=== PATIENT | female | born 1960 | race Caucasian/White ===

== ENCOUNTER → 2020-08-19 15:19 | Outpatient (BNVA) | payer MEDICARE, OTHER, SELFPAY | PROVIDERS: PCP Internal Medicine; Visit Provider Hospitalist | DX: J45.40 Moderate persistent asthma, uncomplicated (principal); G47.33 Obstructive sleep apnea (adult) (pediatric) | CPT/HCPCS: 99212 ==

== ENCOUNTER → 2020-10-10 19:22 | Outpatient (REF) | payer MEDICARE, OTHER, SELFPAY | LOC: HO.SL 19:22 | PROVIDERS: PCP Internal Medicine; Visit Provider Hospitalist | DX: G47.33 Obstructive sleep apnea (adult) (pediatric) (principal) | CPT/HCPCS: 95811 ==

== ENCOUNTER → 2020-11-16 09:05 | Outpatient (BNVA) | payer MEDICARE, OTHER, SELFPAY | PROVIDERS: PCP Internal Medicine; Visit Provider Hospitalist | DX: J45.40 Moderate persistent asthma, uncomplicated (principal); G47.33 Obstructive sleep apnea (adult) (pediatric) | CPT/HCPCS: 99212 ==

== ENCOUNTER → 2021-08-15 08:56 | Outpatient (BNVA) | payer MEDICARE, OTHER, SELFPAY | PROVIDERS: PCP Internal Medicine; Visit Provider Hospitalist | DX: J45.40 Moderate persistent asthma, uncomplicated (principal); G47.33 Obstructive sleep apnea (adult) (pediatric) | CPT/HCPCS: 99212 ==

== ENCOUNTER → 2022-02-06 08:51 | Outpatient (BNVA) | payer MEDICARE, OTHER, SELFPAY | PROVIDERS: PCP Internal Medicine; Visit Provider Hospitalist | DX: G47.33 Obstructive sleep apnea (adult) (pediatric) (principal); J45.40 Moderate persistent asthma, uncomplicated | CPT/HCPCS: 99212 ==

== ENCOUNTER 2023-05-22 08:37 | Outpatient (AMB) | payer MEDICARE, OTHER, SELFPAY ==
--- NOTE | 2023-05-22 08:50 | A.OFFVIS_ITS ---
Intake Vital Signs 05/22/23 08:51 Height 5 ft 2 in Weight 193 lb BMI 35.3 Pulse 74 Pulse Source Pulse Oximeter Pulse Oximetry (%) 93 Oxygen Delivery Method Room Air Intake Visit Reasons: Obstructive sleep apnea [employer] Required: No Allergies dulaglutide [From Trulicity] Allergy (Severe, Verified 05/22/23 08:52) Rash levofloxacin [Levaquin] Allergy (Severe, Verified 05/22/23 08:52) Hives lisinopril Allergy (Severe, Verified 05/22/23 08:52) Cough varenicline Allergy (Severe, Verified 05/22/23 08:52) suicidal thoughts Albuterol Allergy (Severe, Uncoded 05/22/23 08:52) tachycardia Erythromycin Allergy (Severe, Uncoded 05/22/23 08:52) diarrhea HPI HPI Comments History of Present Illness Details The patient is a 62-year-old woman known history of heart disease in addition to asthma and obstructive sleep apnea. Her obstructive sleep apnea has been treated with CPAP. CPAP therapy has been affecting beneficial. Lately she has been having difficulties with her nasal pillow mask. Therefore this is making it hard for her to use it the whole night. Therefore I will provide her with a P 30i small mask that she can try and hopefully she tolerates a little better. Her asthma has been well control with the current asthma therapy. She has not had any flares or need for her nebulizer which is reassuring. She still has a rescue inhaler that she uses less than 2 times a week. She continues her maintenance therapy as prescribed. She has been having issues with weight gain, more than 10 lb in the last few weeks. She does follow up closely with [facility] because of heart failure. Her Bumex has been decreased from 8 mg to now to 3 mg. She is going to monitor her weight over the weekend if she continues gaining weight and worsening edema she needs to call [facility] to have this further addressed. 02/06/2022 the patient is here for miriam monreal follow-up visit. She is having some difficulties with her CPAP. CPAP is no longer working and therefore she cannot use it. She is complaining of increasing daytime drowsiness. Her [place] score is elevated 03/18. The patient is due for replacement machine. I will request a replacement machine at this time from her [employer] company. In regards the asthma she does continue to use the Advair. Denies having to use her rescue inhaler. Denies any exacerbations at this point. Overall the patient is doing well from a respiratory status. Will continue the current therapy at this time. On examination I did appreciate some crackles at the base of her left lung. Will have her get a chest x-ray. She is currently asymptomatic so therefore she cannot 1 done prior to the next appointment. 05/22/2023 the patient is here for a pulm onary follow-up visit. The patient has been struggling with her CPAP. She does have a CPAP machine through [facility]. Has a hard time with the mask because so cumbersome when she goes to the [facility] is difficult to put on and off. 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 Therefore she has been struggling with her CPAP. She is consider alternatives such as the hypoglossal nerve stimulator. We did talk about the concerns of the surgical implantation of the hypoglossal nerve stimulator. And also the fact that is not as effective as the gold standard which CPAP. I do believe that her BMI is a little too high for the procedure in the 1st place. Therefore my recommendation is to try to find a mask that would work best for her for her to tolerate the therapy and to be able to exhaust any other alternative options. In the meantime we can consider the inspire or any other devices that come afterwards as far as reasonable options if she does not tolerate the gold standard. The patient does diabetes and therefore any kind of surgical procedure does have increased risk of infection and I would advise her just to hold off at this time. From a respiratory status the patient is doing well though she is using Advair now is not available. Therefore will have to switch over to 90 [address]. The patient will continue to use her respiratory therapy. She has not required her rescue inhaler. [facility] [place] Medical History (Updated 08/19/20 @ 23:04 by Bravo Walker MD) Asthma YAJAIRA (obstructive sleep apnea) Social History (Updated 11/16/20 @ 09:24 by DAYDAY Jiang) Patient Tobacco Use Status: Former Tobacco user Tobacco use type: Cigarette Years Smoked: 30 years Review of Systems Const Reports daytime sleepiness, Denies night sweats and Denies snoring ENT Denies change in voice, Denies lip swelling, Denies mouth pain, Reports nasal congestion, Reports nasal discharge and Denies tongue swelling Card Denies chest pain and Reports dyspnea on exertion Resp Reports cough, Reports dyspnea on exertion, Denies snoring and Reports wheezing GI Denies abdominal pain Musc Denies no additional complaints Neuro Denies Neuro-related abnormal movements Psych Denies no additional complaints Jason/Lymph Denies easy bleeding and Denies lymphadenopathy Aller/Immun Denies lip swelling, Denies tongue swelling and Reports wheezing Physical Exam Vital Signs: Last Vital Signs Pulse 74 05/22/23 08:51 Pulse Ox 93 05/22/23 08:51 Oxygen Delivery Method Room Air 05/22/23 08:51 BMI result Body Mass Index 35.3 Const General: alert Neck Neck: Yes normal visual inspection, Yes full ROM and Yes no lymphadenopathy Chest Chest palpation & inspection: normal inspection of the chest Resp Auscultation: rales and diminished lung sounds Cardio Rate: regular rate Rhythm: regular rhythm Heart sounds: S1 normal heart sound present and S2 normal heart sound present GI Palpation (GI): Soft to palpation and nontender Auscultation: normal bowel sounds Skin General skin exam: rashes and/or lesions noted Assessment & Plan Assessment & Plan (1) Asthma: Code(s): J45.909 - Unspecified asthma, uncomplicated Qualifiers: Asthma complication type: uncomplicated Asthma persistence: persistent Asthma severity: moderate Qualified Code(s): J45.40 - Moderate persistent asthma, uncomplicated (2) YAJAIRA (obstructive sleep apnea): Code(s): G47.33 - Obstructive sleep apnea (adult) (pediatric) Plan continue APAP 8-12 with a ramp of 6. Requesting F30 small, will have a mask fitting appt with her DME. Holding off on hypoglossal nerve stimulator. I did call the DME, may need a get a repeat PSG, will lwt us know. Continue Advair HFA Continue Singulair JAYDEN as needed F/U 8-12 months Medications: New albuterol sulfate 90 mcg/actuation 2 inhalations inhalation Q6H PRN 18 grams 12RF shortness of breath or wheezing 30 days J44.9 - Chronic obstructive pulmonary disease, unspecified Changed From fluticasone propion-salmeterol 230-21 mcg/actuation 2 puffs inhalation BID To fluticasone propion-salmeterol 230-21 mcg/actuation 2 puffs inhalation BID 12 grams 11RF 30 days Refilled montelukast 10 mg PO DAILY 90 tabs 4RF Coding Level of Care Code Est Pt Level 4 (98607) Diagnoses Moderate persistent asthma without complication J45.40 Asthma complication type: uncomplicated Asthma persistence: persistent Asthma severity: moderate YAJAIRA (obstructive sleep apnea) G47.33 Time Spent (min) 17
[2023-05-22 08:51] VITALS: PULSE 74; O2SAT 93; BMI 35.3
== END 2023-05-22 09:23 | disposition home or self-care (01) ==
PROVIDERS: PCP Internal Medicine; Visit Provider Hospitalist
DX: J45.40 Moderate persistent asthma, uncomplicated (principal); G47.33 Obstructive sleep apnea (adult) (pediatric)
CPT/HCPCS: 99214

== ENCOUNTER → 2023-05-22 08:37 | Outpatient (BNVA) | payer MEDICARE, OTHER, SELFPAY | PROVIDERS: PCP Internal Medicine; Visit Provider Hospitalist | DX: G47.33 Obstructive sleep apnea (adult) (pediatric) (principal); J45.40 Moderate persistent asthma, uncomplicated | CPT/HCPCS: 99212 ==

== ENCOUNTER 2023-11-28 08:49 | Outpatient (AMB) | payer MEDICARE, OTHER, SELFPAY ==
[2023-11-28 08:56] VITALS: BP 124/68; PULSE 50; O2SAT 95; BMI 35.1
--- NOTE | 2023-11-28 08:56 | MHC.OFFVIS ---
Vital Signs 11/28/23 08:56 Height 5 ft 2 in Weight 191 lb 12.835 oz BMI 35.1 BP 124/68 Blood Pressure Location Rt brachial Position Sitting Pulse 50 Pulse Source Pulse Oximeter Pulse Oximetry (%) 95 Oxygen Delivery Method Room Air Intake Visit Reasons: Obstructive sleep apnea Allergies dulaglutide [From Trulicity] Allergy (Severe, Verified 11/28/23 08:59) Rash levofloxacin [Levaquin] Allergy (Severe, Verified 11/28/23 08:59) Hives lisinopril Allergy (Severe, Verified 11/28/23 08:59) Cough varenicline Allergy (Severe, Verified 11/28/23 08:59) suicidal thoughts Albuterol Allergy (Severe, Uncoded 11/28/23 08:59) tachycardia Erythromycin Allergy (Severe, Uncoded 11/28/23 08:59) diarrhea HPI Comments Details: The patient is a 63-year-old woman known history of heart disease in addition to asthma and obstructive sleep apnea. Her obstructive sleep apnea has been treated with CPAP. CPAP therapy has been affecting beneficial. Lately she has been having difficulties with her nasal pillow mask. Therefore this is making it hard for her to use it the whole night. Therefore I will provide her with a P 30i small mask that she can try and hopefully she tolerates a little better. Her asthma has been well control with the current asthma therapy. She has not had any flares or need for her nebulizer which is reassuring. She still has a rescue inhaler that she uses less than 2 times a week. She continues her maintenance therapy as prescribed. She has been having issues with weight gain, more than 10 lb in the last few weeks. She does follow up closely with [facility] because of heart failure. Her Bumex has been decreased from 8 mg to now to 3 mg. She is going to monitor her weight over the weekend if she continues gaining weight and worsening edema she needs to call [facility] to have this further addressed. 02/06/2022 the patient is here for pulmonary follow-up visit. She is having some difficulties with her CPAP. CPAP is no longer working and therefore she cannot use it. She is complaining of increasing daytime drowsiness. Her [place] score is elevated 03/18. The patient is due for replacement machine. I will request a replacement machine at this time from her [employer]. In regards the asthma she does continue to use the Advair. Denies having to use her rescue inhaler. Denies any exacerbations at this point. Overall the patient is doing well from a respiratory status. Will continue the current therapy at this time. On examination I did appreciate some crackles at the base of her left lung. Will have her get a chest x-ray. She is currently asymptomatic so therefore she cannot 1 done prior to the next appointment. 05/22/2023 the patient is here for a pulmonary follow-up visit. The patient has been struggling with her CPAP. She does have a CPAP machine through regional. Has a hard time with the mask because so cumbersome when she goes to the bathroom is difficult to put on and off. 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 Therefore she has been struggling with her CPAP. She is consider alternatives such as the hypoglossal nerve stimulator. We did talk about the concerns of the surgical implantation of the hypoglossal nerve stimulator. And also the fact that is not as effective as the gold standard which CPAP. I do believe that her BMI is a little too high for the procedure in the 1st place. Therefore my recommendation is to try to find a mask that would work best for her for her to tolerate the therapy and to be able to exhaust any other alternative options. In the meantime we can consider the inspire or any other devices that come afterwards as far as reasonable options if she does not tolerate the gold standard. The patient does diabetes and therefore any kind of surgical procedure does have increased risk of infection and I would advise her just to hold off at this time. From a respiratory status the patient is doing well though she is using Advair now is not available. Therefore will have to switch over to 90 [address]ixela. The patient will continue to use her respiratory therapy. She has not required her rescue inhaler. 11/28/2023 the patient is here for a pulmonary follow-up visit. The patient overall has been doing okay. She does have significant lower extremity pain and swelling and has vascular disease. She is currently moving from home to an apartment this has been a lot of aggravation for her. In the meantime she continues to struggle to use her CPAP. She recently lost her dog and now has a hard time sleeping. The patient does use a fullface mask. The CPAP although she has not been using it regularly has been affecting beneficial for her. Will give her sleep aid to see if she can sleep better in order to use her CPAP more recently in effectively. Will request supplies from [facility] [employer]. Her asthma seems to be stable this time. She is using her respiratory inhalers as prescribed. Back in the spring she was admitted to [facility] with sepsis. The patient states that she was found to have pneumonia. She was treated and released. Subsequently after that she did have her pneumonia vaccine. She is going to make sure she had Prevnar 20. She also had an x-ray that per report the patient states that the changes improved. All available [place]. Will have to request records. But for now since she did have a normal x-ray will hold off on additional imaging studies. Her respiratory exam is reassuring. We will follow-up in the spring will decide if we need additional imaging studies done [facility] Medical History (Updated 08/19/20 @ 23:04 by Bravo Walker MD) Asthma YAJAIRA (obstructive sleep apnea) Social History (Updated 11/16/20 @ 09:24 by DAYDAY Jiang) Patient Tobacco Use Status: Former Tobacco user Tobacco use type: Cigarette Years Smoked: 30 years Review of Systems Const Reports daytime sleepiness, Denies night sweats and Denies snoring ENT Denies change in voice, Denies lip swelling, Denies mouth pain, Reports nasal congestion, Reports nasal discharge and Denies tongue swelling Card Denies chest pain and Reports dyspnea on exertion Resp Reports cough, Reports dyspnea on exertion, Denies snoring and Reports wheezing GI Denies abdominal pain Musc Denies no additional complaints Neuro Denies Neuro-related abnormal movements Psych Denies no additional complaints Jason/Lymph Denies easy bleeding and Denies lymphadenopathy Aller/Immun Denies lip swelling, Denies tongue swelling and Reports wheezing Physical Exam Vital Signs: Last Vital Signs Pulse 50 11/28/23 08:56 BP 124/68 11/28/23 08:56 Pulse Ox 95 11/28/23 08:56 Oxygen Delivery Method Room Air 11/28/23 08:56 BMI result Body Mass Index 35.1 Const General: alert Neck Neck: Yes normal visual inspection, Yes full ROM and Yes no lymphadenopathy Chest Chest palpation & inspection: normal inspection of the chest Resp Auscultation: diminished lung sounds Cardio Rate: regular rate Rhythm: regular rhythm Heart sounds: S1 normal heart sound present and S2 normal heart sound present GI Palpation (GI): Soft to palpation and nontender Auscultation: normal bowel sounds Skin General skin exam: rashes and/or lesions noted Assessment & Plan Assessment & Plan (1) Asthma: Code(s): J45.909 - Unspecified asthma, uncomplicated Category: Medical Qualifiers: Asthma complication type: uncomplicated Asthma persistence: persistent Asthma severity: moderate Qualified Code(s): J45.40 - Moderate persistent asthma, uncomplicated (2) YAJAIRA (obstructive sleep apnea): Code(s): G47.33 - Obstructive sleep apnea (adult) (pediatric) Category: Medical Plan continue APAP 8-12 with a ramp of 6. F30 small, will have a mask fitting appt with her DME. Continue Advair HFA Continue Singulair JAYDEN as needed trial of Trazodone as needed for sleep F/U 8-12 months Medications: New trazodone Take 1 hour before sleep 50 mg PO BEDTIME PRN 30 tabs 6RF sleep 30 days fluticasone propionate 50 mcg/actuation 2 sprays intranasal DAILY 16 grams 11RF Refilled fluticasone propion-salmeterol 230-21 mcg/actuation 2 puffs inhalation BID 12 grams 11RF 30 days montelukast 10 mg PO DAILY 90 tabs 4RF Coding Level of Care Code Est Pt Level 4 (37297) Diagnoses Moderate persistent asthma without complication J45.40 Asthma complication type: uncomplicated Asthma persistence: persistent Asthma severity: moderate YAJAIRA (obstructive sleep apnea) G47.33 Time Spent (min) 16
== END 2023-11-28 09:16 | disposition home or self-care (01) ==
PROVIDERS: PCP Internal Medicine; Visit Provider Hospitalist
DX: J45.40 Moderate persistent asthma, uncomplicated (principal); G47.33 Obstructive sleep apnea (adult) (pediatric)
CPT/HCPCS: 99214

== ENCOUNTER → 2023-11-28 08:49 | Outpatient (BNVA) | payer MEDICARE, OTHER, SELFPAY | PROVIDERS: PCP Internal Medicine; Visit Provider Hospitalist | DX: J45.40 Moderate persistent asthma, uncomplicated (principal); G47.33 Obstructive sleep apnea (adult) (pediatric) | CPT/HCPCS: 99212 ==

== ENCOUNTER 2024-09-01 08:35 | Outpatient (AMB) | payer MEDICARE, OTHER, SELFPAY ==
[2024-09-01 08:38] VITALS: BP 120/60; PULSE 69; O2SAT 97; BMI 35.1
--- NOTE | 2024-09-01 08:38 | MHC.OFFVIS ---
Vital Signs 09/01/24 08:38 Height 5 ft 2 in Weight 191 lb 12.835 oz BMI 35.1 BP 120/60 Blood Pressure Location Rt brachial Position Sitting Pulse 69 Pulse Source Pulse Oximeter Pulse Oximetry (%) 97 Oxygen Delivery Method Room Air Intake Visit Reasons: Obstructive sleep apnea Leave Manager Required: No Allergies dulaglutide [From Trulicity] Allergy (Severe, Verified 09/01/24 08:41) Rash levofloxacin [Levaquin] Allergy (Severe, Verified 09/01/24 08:41) Hives lisinopril Allergy (Severe, Verified 09/01/24 08:41) Cough varenicline Allergy (Severe, Verified 09/01/24 08:41) suicidal thoughts Albuterol Allergy (Severe, Uncoded 11/28/23 08:59) tachycardia Erythromycin Allergy (Severe, Uncoded 11/28/23 08:59) diarrhea HPI Comments Details: The patient is a 64-year-old woman known history of heart disease in addition to asthma and obstructive sleep apnea. Her obstructive sleep apnea has been treated with CPAP. CPAP therapy has been affecting beneficial. Lately she has been having difficulties with her nasal pillow mask. Therefore this is making it hard for her to use it the whole night. Therefore I will provide her with a P 30i small mask that she can try and hopefully she tolerates a little better. Her asthma has been well control with the current asthma therapy. She has not had any flares or need for her nebulizer which is reassuring. She still has a rescue inhaler that she uses less than 2 times a week. She continues her maintenance therapy as prescribed. She has been having issues with weight gain, more than 10 lb in the last few weeks. She does follow up closely with [facility] because of heart failure. Her Bumex has been decreased from 8 mg to now to 3 mg. She is going to monitor her weight over the weekend if she continues gaining weight and worsening edema she needs to call [facility] to have this further addressed. 02/06/2022 the patient is here for pulmonary follow-up visit. She is having some difficulties with her CPAP. CPAP is no longer working and therefore she cannot use it. She is complaining of increasing daytime drowsiness. Her [place] score is elevated 03/18. The patient is due for replacement machine. I will request a replacement machine at this time from her [employer]. In regards the asthma she does continue to use the Advair. Denies having to use her rescue inhaler. Denies any exacerbations at this point. Overall the patient is doing well from a respiratory status. Will continue the current therapy at this time. On examination I did appreciate some crackles at the base of her left lung. Will have her get a chest x-ray. She is currently asymptomatic so therefore she cannot 1 done prior to the next appointment. 05/22/2023 the patient is here for a pulmonary follow-up visit. The patient has been struggling with her CPAP. She does have a CPAP machine through regional. Has a hard time with the mask because so cumbersome when she goes to the bathroom is difficult to put on and off. 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 Therefore she has been struggling with her CPAP. She is consider alternatives such as the hypoglossal nerve stimulator. We did talk about the concerns of the surgical implantation of the hypoglossal nerve stimulator. And also the fact that is not as effective as the gold standard which CPAP. I do believe that her BMI is a little too high for the procedure in the 1st place. Therefore my recommendation is to try to find a mask that would work best for her for her to tolerate the therapy and to be able to exhaust any other alternative options. In the meantime we can consider the inspire or any other devices that come afterwards as far as reasonable options if she does not tolerate the gold standard. The patient does diabetes and therefore any kind of surgical procedure does have increased risk of infection and I would advise her just to hold off at this time. From a respiratory status the patient is doing well though she is using Advair now is not available. Therefore will have to switch over to 90 [place]. The patient will continue to use her respiratory therapy. She has not required her rescue inhaler. 11/28/2023 the patient is here for a pulmonary follow-up visit. The patient overall has been doing okay. She does have significant lower extremity pain and swelling and has vascular disease. She is currently moving from home to an apartment this has been a lot of aggravation for her. In the meantime she continues to struggle to use her CPAP. She recently lost her dog and now has a hard time sleeping. The patient does use a fullface mask. The CPAP although she has not been using it regularly has been affecting beneficial for her. Will give her sleep aid to see if she can sleep better in order to use her CPAP more recently in effectively. Will request supplies from [employer]. Her asthma seems to be stable this time. She is using her respiratory inhalers as prescribed. Back in the spring she was admitted to [facility] with sepsis. The patient states that she was found to have pneumonia. She was treated and released. Subsequently after that she did have her pneumonia vaccine. She is going to make sure she had Prevnar 20. She also had an x-ray that per report the patient states that the changes improved. All available Coffee. Will have to request records. But for now since she did have a normal x-ray will hold off on additional imaging studies. Her respiratory exam is reassuring. We will follow-up in the spring will decide if we need additional imaging studies done 09/01/2024 the patient is here for pulmonary follow-up visit. The patient did have issues with chest pain and shortness of breath back in February and March. She underwent cardiac testing in March and was found to have significant heart disease. She was admitted to [facility] where she underwent cardiac bypass surgery. She was then diagnosed with pneumonia and she was treated. Patient also started developing chest pain afterwards and she had a repeat cardiac catheterization and actually required another stent. Now she is feeling a lot better. Breathing is a lot better. She does have inhalers. The patient is doing okay from the asthma standpoint. Does not require her rescue inhaler less than 2 times a week. The patient also was seen by sleep. She was placed on nasal pillows. Her CPAP company is reliable. She is using it in the therapy has been affecting beneficial. Will request a download from her [employer] company at this time. [facility], [facility] Medical History (Updated 08/19/20 @ 23:04 by Bravo Walker MD) Asthma YAJAIRA (obstructive sleep apnea) Surgical History (Updated 09/01/24 @ 09:43 by Bravo Walker MD) History of open heart surgery Social History Patient Tobacco Use Status: Former Tobacco user Tobacco use type: Cigarette Years Smoked: 30 years Review of Systems Const Denies chills, Denies fatigue, Denies fever(s), Denies weight gain and Denies weight loss ENT Denies dizziness, Denies lip swelling and Denies tongue swelling Card Denies chest pain, Denies leg edema, Denies lightheadedness, Denies palpitations, Denies dyspnea on exertion, Denies orthopnea and Denies other Resp Denies cough, Denies dyspnea on exertion and Denies wheezing GI Denies hematochezia and Denies change in stool character Musc Denies abnormal gait, Denies muscle weakness, Denies numbness, Denies radiating pain into limb and Denies tingling Neuro Denies abnormal gait, Denies dizziness, Denies numbness and Denies tingling Psych Denies no additional complaints Endo Denies fatigue and Denies palpitations Jason/Lymph Denies easy bleeding and Denies lymphadenopathy Aller/Immun Denies lip swelling, Denies tongue swelling and Denies wheezing Physical Exam Vital Signs: Last Vital Signs Pulse 69 09/01/24 08:38 BP 120/60 09/01/24 08:38 Pulse Ox 97 09/01/24 08:38 Oxygen Delivery Method Room Air 09/01/24 08:38 BMI result Body Mass Index 35.1 Const General: alert Neck Neck: Yes normal visual inspection, Yes full ROM and Yes no lymphadenopathy Chest Chest palpation & inspection: normal inspection of the chest and other (new scar from open hear surgery) Resp Effort & Inspection: normal respiratory effort Auscultation: clear to auscultation bilaterally Cardio Rate: regular rate Rhythm: regular rhythm Heart sounds: S1 normal heart sound present and S2 normal heart sound present GI Palpation (GI): Soft to palpation and nontender Auscultation: normal bowel sounds Skin General skin exam: rashes and/or lesions noted Assessment & Plan Assessment & Plan (1) Asthma: Code(s): J45.909 - Unspecified asthma, uncomplicated Category: Medical Qualifiers: Asthma complication type: uncomplicated Asthma persistence: persistent Asthma severity: moderate Qualified Code(s): J45.40 - Moderate persistent asthma, uncomplicated (2) YAJAIRA (obstructive sleep apnea): Code(s): G47.33 - Obstructive sleep apnea (adult) (pediatric) Category: Medical (3) History of open heart surgery: Code(s): Z98.890 - Other specified postprocedural states Category: Medical Plan continue APAP 8-12 with a ramp of 6. Nasal pillows, [facility] CXR baseline after having pneumonia Continue Advair HFA Continue Singulair JAYDEN as needed Melatonin for sleep F/U 8-12 months Orders: Orders XR chest 2V Today J45.40 - Moderate persistent asthma, uncomplicated Medications: Refilled albuterol sulfate 90 mcg/actuation 2 inhalations inhalation Q6H PRN 18 grams 12RF shortness of breath or wheezing 30 days J44.9 - Chronic obstructive pulmonary disease, unspecified fluticasone propion-salmeterol 230-21 mcg/actuation 2 puffs inhalation BID 12 grams 11RF 30 days montelukast 10 mg PO DAILY 90 tabs 4RF Coding Level of Care Code Est Pt Level 4 (41949) Diagnoses Moderate persistent asthma without complication J45.40 Asthma complication type: uncomplicated Asthma persistence: persistent Asthma severity: moderate YAJAIRA (obstructive sleep apnea) G47.33 History of open heart surgery Z98.890 Time Spent (min) 17
--- OUTSIDE RECORDS SUMMARY | 2024-09-01 08:44 | XMS_ITS | Encounter Summary ---
Author Organization [facility] Address [address] [place] [address] Care Team Providers Care Hop Weigher Name Role Phone Suraj Murguia MD Primary Care Provider Rosaura Bhagat MD Unavailable [phone] Chantal Crane PA-C Unavailable [phone] Sukumar Ramirez PA-C Unavailable Encounter Details Date Type Department Care Team Description 10/10/2018 Release of Information Medical Records [address] [place] [id number] Abstract, Provider Social History Tobacco Use Types Packs/Day Years Used Date Smoking Tobacco: Former Cigarettes 1 30 1 977 - 07/20/2010 Smokeless Tobacco: Never Alcohol Use Standard Drinks/Week Comments No 0 (1 standard drink = 0.6 oz pur e alcohol) Sex Assigned at Date Recorded Not on file Job Start Date Occupation Industry Not on file Not on file Not on file documented as of this encounter Plan of Treatment Not on file documented as of this encounter Visit Diagnoses Not on filedocumented in this encounter Care Teams Hop Weigher Relationship Specialty Start Date End Date Suraj Murguia MD PCP - General 12/16/04 Rosaura Paiz MD [address] [address] Specialist Neurosurgery 10/04/21 Chantal Crane PA-C [address] [address] Specialist Neurosurgery 11/08/21 Sukumar Ramirez PA-C [address] [facility] [address] [place] [address] Specialist Neurosurgery 11/08/21 documented as of this encounter
== END 2024-09-01 09:56 | disposition home or self-care (01) ==
LOC: HO.HPS 08:35
PROVIDERS: PCP Internal Medicine; Visit Provider Hospitalist
DX: J45.40 Moderate persistent asthma, uncomplicated (principal); G47.33 Obstructive sleep apnea (adult) (pediatric); Z98.890 Other specified postprocedural states
CPT/HCPCS: 99214

== ENCOUNTER 2024-09-01 08:35 | Outpatient (REF) | payer MEDICARE, OTHER, SELFPAY ==
--- NOTE | ~2024-09-01 | XR_ITS ---
EXAMINATION: XR CHEST 2 VIEWS HISTORY: J45.40 - Moderate persistent asthma, uncomplicated COMPARISON: There are no prior studies available for comparison. FINDINGS: PA and lateral views of the chest are submitted. The lungs are expanded and clear. There is no pleural effusion, pneumothorax, or pulmonary vascular congestion. The heart is normal in size. The patient is status post median sternotomy and CABG. The aorta is calcified. There is degenerative disc disease of the spine. XR/XR chest 2V IMPRESSION: Clear lungs. Electronically signed by: Eliu Read MD 09/01/2024 10:07 AM EDT
== END 2024-09-01 08:36 | disposition home or self-care (01) ==
LOC: HO.XRAY 08:35
PROVIDERS: PCP Internal Medicine; Visit Provider Hospitalist
DX: J45.40 Moderate persistent asthma, uncomplicated (principal); G47.33 Obstructive sleep apnea (adult) (pediatric); Z98.890 Other specified postprocedural states
CPT/HCPCS: 71046; 99212

== ENCOUNTER → 2024-09-01 09:24 | Outpatient (BNV) | payer MEDICARE, OTHER, SELFPAY | PROVIDERS: PCP Internal Medicine; Visit Provider Radiology Diagnostic Radiology | DX: J45.40 Moderate persistent asthma, uncomplicated (principal) | CPT/HCPCS: 71046 ==